=== PATIENT | male | born 1995 | race Caucasian/White ===

== ENCOUNTER 2017-03-05 13:17 | Emergency (ER) | payer OTHER ==
[2017-03-05 13:28] VITALS: BP 104/58
--- NOTE | 2017-03-05 14:59 | UC ---
Respiratory Complaint HPI - HPI Summary HPI Summary: Pt presents with c/o cough X 1 day. - History of Current Complaint Hx Obtained From: Patient Onset/Duration: Sudden Onset Timing: Intermittent Episodes Severity Initially: Mild Severity Currently: Mild Pain Intensity: 7 Pain Scale Used: 0-10 Numeric Character: Cough: Nonproductive Associated Signs And Symptoms: Positive: Negative - Risk Factors Pulmonary Embolism Risk Factors: Negative Tuberculosis Risk Factors: Negative <Martha Agosto NP - Last Filed: 03/05/17 14:55> <Joseline Tamayo - Last Filed: 03/05/17 19:42> - History of Current Complaint Chief Complaint: UCRespiratory Stated Complaint: SORE THROAT Time Seen by Provider: 03/05/17 13:46 - Allergies/Home Medications Allergies/Adverse Reactions: Allergies Allergy/AdvReac Type Severity Reaction Status Date / Time Amoxicillin Allergy Hives Verified 03/05/17 13:29 Home Medications: Home Medications Buprenorphine/Naloxone SL TAB* [Suboxone 8-2 mg SL TAB*] 8 tab.sl SL DAILY 03/05 [History Confirmed 03/05/17] Gabapentin CAP(*) [Neurontin 400 mg CAP(*)] 600 mg PO BID 03/05/17 [History Confirmed 03/05/17] Mirtazapine TAB* [Remeron TAB*] 30 mg PO BEDTIME 03/05/17 [History Confirmed 01/12] PMH/Surg Hx/FS Hx/Imm Hx Previously Healthy: Yes - Surgical History Surgical History: Yes Surgery Procedure, Year, and Place: Stent in Liver for laceration 2010 - Family History Known Family History: Positive: Hypertension, Diabetes - Social History Occupation: Employed Full-time Lives: With Family Alcohol Use: Rare Substance Use Type: None Smoking Status (MU): Never Smoked Tobacco Have You Smoked in the Last Year: No - Immunization History Most Recent Influenza Vaccination: no Most Recent Tetanus Shot: 02/05/15 Vaccination Up to Date: Yes <Martha Agosto NP - Last Filed: 03/05/17 14:55> Review of Systems Constitutional: Negative Skin: Negative Eyes: Negative ENT: Negative Respiratory: Cough Cardiovascular: Negative Gastrointestinal: Negative Genitourinary: Negative Motor: Negative Neurovascular: Negative Musculoskeletal: Negative Neurological: Negative Psychological: Negative Is Patient Immunocompromised?: Yes All Other Systems Reviewed And Are Negative: Yes <Martha Agosto NP - Last Filed: 03/05/17 14:55> Physical Exam Triage Information Reviewed: Yes Appearance: Well-Appearing Vital Signs: Initial Vital Signs Temp 98 F 03/05/17 13:23 Pulse 53 03/05/17 13:23 Resp 16 03/05/17 13:23 BP 104/58 03/05/17 13:23 Pulse Ox 99 03/05/17 13:23 Vital Signs Reviewed: Yes Eye Exam: Normal ENT: Positive: Nasal congestion Dental Exam: Normal Neck exam: Normal Respiratory Exam: Normal Cardiovascular Exam: Normal Musculoskeletal Exam: Normal Neurological Exam: Normal Psychological Exam: Normal Skin Exam: Normal <Martha Agosto NP - Last Filed: 03/05/17 14:55> Vital Signs: Initial Vital Signs Temp 98 F 03/05/17 13:23 Pulse 53 03/05/17 13:23 Resp 16 03/05/17 13:23 BP 104/58 03/05/17 13:23 Pulse Ox 99 03/05/17 13:23 <Joesline Tamayo - Last Filed: 03/05/17 19:42> Diagnostic Evaluation - Laboratory O2 Sat by Pulse Oximetry: 99 <Martha Agosto NP - Last Filed: 03/05/17 14:55> Respiratory Course/Dx - Differential Dx/Diagnosis Differential Diagnosis/HQI/PQRI: Bronchitis, Other - URI Provider Diagnoses: URI <Martha Agosto NP - Last Filed: 03/05/17 14:55> Discharge <Martha Agosto NP - Last Filed: 03/05/17 14:55> <Joseline Tamayo - Last Filed: 03/05/17 19:42> - Discharge Plan Condition: Stable Disposition: HOME Prescriptions: Benzonatate CAP* [Tessalon 100 MG CAP*] 100 mg PO TID PRN #15 cap PRN Reason: Cough Patient Education Materials: Upper Respiratory Infection (ED) Forms: *Work Release Referrals: [facility] [Outside] SONYA Ellison [Primary Care Provider] - If Needed (Please follow up with your PCP or return to clinic as needed. ) Attestation Statement User Type: Provider - I was available for consult. This patient was seen by the BHAVANA. The patient was not presented to, seen by, or examined by me. -Paula <Joseline Tamayo - Last Filed: 03/05/17 19:42>
== END 2017-03-05 14:10 | disposition home or self-care (01) ==
LOC: UCCORT 13:17
DX: J06.9 Acute upper respiratory infection, unspecified (principal); Z88.3 Allergy status to other anti-infective agents
CPT/HCPCS: 87651; 99212; G0463